=== PATIENT | male | born 1960 | race Hispanic/Latino ===

== ENCOUNTER 2021-05-15 17:51 | Emergency (ER) | payer SELFPAY ==
[2021-05-15 18:10] VITALS: BP 138/87; PULSE 61; RESP 16; TEMP 36.7; O2SAT 99
--- NOTE | 2021-05-15 19:42 | ED.ABDPAIN ---
HPI - Abdominal Pain General Chief Complaint: Abdominal Pain Stated Complaint: Side Pain Source: patient and RN notes reviewed Limitations: no limitations History of Present Illness HPI narrative: The patient, previously mostly healthy and on no medications, presents with left-sided abdominal pain. Patient states he is short of 2-day history of left lower quadrant pain that is mild, worse with deep palpation. No fever, vomiting/diarrhea, frequency/urgency/dysuria/hematuria, radiating pain. He was seen at another facility yesterday but eloped before treatment complete. Labs, testing unavailable; patient declines further hospital referral/testing. Related Data Allergies Allergy/AdvReac Type Severity Reaction Status Date / Time No Known Allergies Allergy Unverified 05/15/21 18:30 Review of Systems Review of Systems: General/Constitutional: No weight loss,fever Respiratory: Denies: Hemoptysis Gastrointestinal: No Vomiting, Bleeding-rectal Skin: No Lumps, eruption Neurologic: No Focal Weakness,Sz Hematologic: Denies: Petechiae/Purpura PMFSH Comments At time of signature, agree with nursing past medical, surgical, social and family history. There is no relevant family history pertinent to the presenting complaint Exam Narrative: General Appearance: Well appearing, No distress Mouth/Throat: Normal appearing, Normal lips,: Supple Respiratory: Airway patent, No respiratory distress Cardiovascular: RRR Abdomen: Soft, only mild LLQ tenderness, No massess, No organomegaly (no rebound/ surgical signs), Hyperactive bowel sounds Musculoskeletal: Full ROM Skin: Warm, Dry Neurological: A&O x3, CN II-X intact Psychiatric: Normal mood, Normal affect Course Vital Signs Vital signs: Vital Signs Temperature 98.0 F 05/15/21 18:10 Pulse Rate 61 05/15/21 18:10 Respiratory Rate 16 05/15/21 18:10 Blood Pressure 138/87 05/15/21 18:10 Pulse Oximetry 99 05/15/21 18:10 Temperature 98.0 F 05/15/21 18:10 Pulse Rate 61 05/15/21 18:10 Respiratory Rate 16 05/15/21 18:10 Blood Pressure 138/87 05/15/21 18:10 Pulse Oximetry 99 05/15/21 18:10 Discharge Plan Discharge Clinical Impression: Abdominal pain, LLQ Patient Disposition: Home, Self-Care Condition: Stable Instructions: Diverticulitis (ED) Additional Instructions: See your doctor without fail as you have declined hospital referral or scan tonight Prescriptions: New amoxicillin-pot clavulanate [Augmentin] 500-125 mg tablet 1 tablet PO TID Qty: 20 RF: 0 tramadol 50 mg tablet 50 - 75 mg PO Q6H PRN (Reason: pain) Qty: 30 RF: 0 Follow-up/Referrals: Abebe,Ritesh Justin MD [Primary Care Provider] - Stand Alone Forms: Work/School Release IP
== END 2021-05-15 19:50 | disposition home or self-care (01) ==
PROVIDERS: Emergency Provider Emergency Medicine; PCP Internal Medicine
DX: R10.32 Left lower quadrant pain (principal)
CPT/HCPCS: 99213; G0463

== ENCOUNTER 2021-05-16 10:28 | Emergency (ER) | payer BC, SELFPAY ==
--- NOTE | ~2021-05-16 | CT_ITS ---
EXAMINATION: CT abdomen pelvis w con EXAM DATE: 05/16/2021 12:28 INDICATION: Left upper quadrant, flank pain. TECHNIQUE: Spiral CT of the abdomen and pelvis was performed following intravenous injection of 100 m L Omnipaque 350. Axial, coronal and sagittal images of the abdomen and pelvis were reviewed. The do se-length product (DLP) for this examination was 461.13 mGy-cm. The exposure was tailored according to patient size (auto mA exposure control), and iterative reconstruction (ASIR) was used as additiona l dose reduction technique. There is no prior study for comparison. FINDINGS: There is a bifid left renal pelvis, with a 3 mm stone which could be partially obstructing the upper moiety which has mild to moderate hydronephrosis. However there is also mild hydronephrosis of the lower moiety, and also enhancement of the renal pelvis and proximal ureter urothelium which c ould be reactive inflammation, or upper urinary tract infection, correlate with urinalysis. The liver, spleen, adrenal glands and pancreas are unremarkable. The gallbladder is distended but ot herwise unremarkable. There is no biliary duct dilation. The prostate is unremarkable. The bladder is unremarkable. There is no retroperitoneal or pelvic lymphadenopathy. Small umbilical and bilat eral inguinal fat-containing hernias. The appendix is normal. The stomach and small bowel are unremarkable. There is expected amount of c olonic stool. No free intraperitoneal gas. The heart is normal in size. There are no pericardial or pleural effusions. The lung bases are unremarkable. There are no osteoblastic or osteolytic les ions identified. IMPRESSION: Bifid left renal pelvis, with a 3 mm stone which could be partially obstructing the upper moiety given mild to moderate hydronephrosis. However there is also mild hydronephrosis of the left lower moiety, and enhancement of the urothelium which could be reactive inflammation, or upper urinar y tract infection, correlate with urinalysis. Reviewed, dictated and finalized at location A. IMPRESSION: Bifid left renal pelvis, with a 3 mm stone which could be partially obstructing the upper moiety given mild to moderate hydronephrosis. However th ere is also mild hydronephrosis of the left lower moiety, and enhancement of th e urothelium which could be reactive inflammation, or upper urinary tract infec tion, correlate with urinalysis.
--- NOTE | ~2021-05-16 | XR_ITS ---
EXAMINATION: XR abdomen/kub 1V EXAM DATE: 05/16/2021 15:04 INDICATION: Kidney stone, flank pain. TECHNIQUE: Frontal projection(s) of the abdomen for interpretation. Correlation is made to CT perform ed earlier same date. FINDINGS: There is bifid left renal collecting system with mild to moderate upper moiety caliectasis . Can't identify the small stone which could be partly obstructing this upper moiety, which may be d ue to the contrast present in the collecting system. Moderate amount of colonic stool and gas. The bl adder is unremarkable. IMPRESSION: Left renal bifid pelvis with mild to moderate upper moiety caliectasis. Reviewed, dictated and finalized at location A. IMPRESSION: Left renal bifid pelvis with mild to moderate upper moiety caliect asis.
[2021-05-16 11:23] VITALS: BP 153/93; PULSE 57; RESP 18; TEMP 37.1; O2SAT 97
[2021-05-16 11:48] LABS: Basophils Percent Auto 0.4 % (0.2-1.2); Eosinophils Absolute Auto 0.1 K/mm3 (0-0.3); Eosinophils Percent Auto 0.7 % (0-4.4); Hematocrit 43.6 % (42.0-52.0); Hemoglobin 14.6 g/dL (14.0-18.0); Immature Granulocyte Absolute 0.03 K/mm3 (0.00-0.031); Immature Granulocyte Percent A 0.4 % (0-0.5); Lymphocytes Absolute Auto 1.63 K/mm3 (0.9-3.2); Lymphocytes Percent Auto 21.5 % (18.3-44.2); Mean Corpuscular HGB Conc 33.5 g/dl (32-36); Mean Corpuscular Hemoglobin 30.9 pg (26-34); Mean Corpuscular Volume 92.2 fl (80-100); Mean Platelet Volume 9.1 fl (7.4-10.4); Monocytes Absolute Auto 0.7 K/mm3 (0.1-0.6); Monocytes Percent Auto 8.6 % (2.6-8.5); Neutrophils Absolute Auto 5.2 K/mm3 (1.3-6.7); Neutrophils Percent Auto 68.4 % (45.5-73.1); Platelet Count Result 240 k/mm3 (150-375); Red Blood Count 4.73 M/mm3 (4.6-6.20); Red Cell Distribution Width 14.3 % (11.5-14.5); White Blood Count 7.6 K/mm3 (4.5-10.0)
[2021-05-16 11:57] LABS: Add Urine Microscopic? YES; Appearance Urine Clear (Clear); Bilirubin Urine Negative (Negative); Blood Urine 2+ (Negative); Color Urine Yellow (Yellow); Glucose Urine UA Negative (Negative); Ketones Urine Negative (Negative); Leukocyte Esterase Ur Negative LEU/UL (Negative); Mucus Urine Rare /lpf; Nitrate Urine Negative (Negative); Protein Urine 1+ mg/dL (Negative); Specific Grav Ur 1.024 (1.001-1.035); Urobilinogen Urine Negative mg/dL (<2.0)
[2021-05-16 12:00] LABS: Alanine Aminotransferase 18 U/L (4-50); Albumin Level 4.4 g/dL (3.5-5.1); Alkaline Phosphatase 58 U/L (38-126); Anion Gap 10 mmol/L (8-16); Aspartate Amino Transferase 24 U/L (17-59); Bilirubin,Total 0.7 mg/dL (0.2-1.3); Blood Urea Nitrogen 18 mg/dL (9-20); Calcium 9.1 mg/dL (8.4-10.2); Carbon Dioxide 24 mmol/L (22-30); Chloride 105 mmol/L (98-107); Estimated CRCL calculation 73 ml/min; Estimated Glomerular Filt Rate > 60; Glucose 101 mg/dL (65-110); Lipase 39 U/L (23-300); Sodium 139 mmol/L (137-145)
--- NOTE | 2021-05-16 12:48 | ED.GENADULT ---
HPI - General Adult General Chief complaint: Abdominal Pain Stated complaint: L Side Pain Time Seen by Provider: 05/16/21 11:13 Source: patient History of Present Illness HPI narrative: Patient is a 60 y/o male complaining of left lower abdominal pain starting 2 days ago. He describes his pain as sharp and rates it as 10/10. His pain goes to the back sometimes. He took OTC pain meds which did not help much. He has no vomiting, diarrhea or dysuria. He was seen at urgent care and diagnosed with possible diverticulitis based clinical features and prescribed Augmentin. However, he states that antibiotic has not help with his symptoms. Related Data Allergies Allergy/AdvReac Type Severity Reaction Status Date / Time No Known Allergies Allergy Verified 05/16/21 11:29 Review of Systems Constitutional: Constitutional: Denies chills, Denies fever(s), Denies headache(s) and Denies weakness Eyes: Eyes: Denies blurry vision ENT: Denies headache(s) and Denies neck pain Cardiovascular: Cardiovascular: Denies chest pain and Denies dyspnea Respiratory: Respiratory: Denies cough and Denies dyspnea Gastrointestinal: Gastrointestinal: Reports abdominal pain, Denies diarrhea, Denies nausea and Denies vomiting Genitourinary: Genitourinary: Denies hematuria and Denies dysuria Musculoskeletal: Musculoskeletal: Denies back pain and Denies neck pain Neurologic: Denies headache(s) and Denies weakness Exam Const: General: no acute distress and well developed Orientation/consciousness: oriented to person, oriented to place, oriented to time and patient oriented x3 HENMT: Head: normocephalic Ears: external ears normal General nose exam: Normal external nose present Eyes: General: appearance normal, both eyes and all related structures Conjunctivae: conjunctivae normal Neck: Neck: normal visual inspection and full ROM Chest: Chest palpation & inspection: normal inspection of the chest and no tenderness Resp: Effort & Inspection: normal respiratory effort Auscultation: clear to auscultation bilaterally Cardio: Rate: bradycardic Rhythm: regular rhythm GI: GI Palp: No abdominal tenderness and Yes Soft to palpation Skin: General skin exam: normal color and turgor normal Neuro: General: oriented to person, oriented to place, oriented to time and patient oriented x3 Cognition (Neuro): normal cognition Extrem: General: normal to inspection, full ROM and no pedal edema Psych: Appearance: grossly normal Mental Status: mental status grossly normal Affect: normal affect Course Consultations Consultation #1: Discussed with Dr. Gonzalez, who recommends KUB, Flomax and patient can follow up with him. Date: 05/16/21 Time: 14:53 Vital Signs Vital signs: Vital Signs Temperature 37.1 C 05/16/21 11:23 Pulse Rate 57 L 05/16/21 11:23 Respiratory Rate 18 05/16/21 11:23 Blood Pressure 153/93 H 05/16/21 11:23 Pulse Oximetry 97 05/16/21 11:23 Temperature 37.1 C 05/16/21 11:23 Pulse Rate 49 L 05/16/21 15:14 Respiratory Rate 18 05/16/21 15:14 Blood Pressure 139/93 H 05/16/21 15:14 Pulse Oximetry 98 05/16/21 15:14 Medical Decision Making Vital Signs Vital Signs: Vital Signs Temperature 37.1 C 05/16/21 11:23 Pulse Rate 57 L 05/16/21 11:23 Respiratory Rate 18 05/16/21 11:23 Blood Pressure 153/93 H 05/16/21 11:23 Pulse Oximetry 97 05/16/21 11:23 Temperature 37.1 C 05/16/21 11:23 Pulse Rate 49 L 05/16/21 15:14 Respiratory Rate 18 05/16/21 15:14 Blood Pressure 139/93 H 05/16/21 15:14 Pulse Oximetry 98 05/16/21 15:14 Lab Data Result diagrams: 05/16/21 11:38 05/16/21 11:38 Labs: Lab Results 05/16/21 05/16/21 05/16/21 Range/Units 11:38 11:38 11:38 WBC 7.6 (4.5-10.0) K/mm3 RBC 4.73 (4.6-6.20) M/mm3 Hgb 14.6 (14.0-18.0) g/dL Hct 43.6 (42.0-52.0) % MCV 92.2 (80-100) fl MCH 30.9 (26-34) pg MCHC 33.5 (32-36)
[2021-05-16 12:53] VITALS: BP 139/96; PULSE 57; RESP 16; O2SAT 99
[2021-05-16] MEDS: SODIUM CHLORIDE 0.9% IV 1,000 ML 999 ML IV CONT (12:53)
[2021-05-16] MEDS: KETOROLAC 30 MG/ML VIAL (*BKC) IV PUSH (12:53)
[2021-05-16 15:14] VITALS: BP 139/93; PULSE 49; RESP 18; O2SAT 98
== END 2021-05-16 15:15 | disposition home or self-care (01) ==
PROVIDERS: Emergency Provider Emergency Medicine; PCP Internal Medicine
DX: N13.2 Hydronephrosis with renal and ureteral calculous obstruction (principal)
CPT/HCPCS: 36415; 74018; 74177; 80053; 81001; 83690; 85025; 87086; 96361; 96374; 99284; J1885; J7030; Q9967

== ENCOUNTER 2021-05-17 03:13 | Emergency (ER) | payer BC, SELFPAY ==
--- NOTE | ~2021-05-17 | XR_ITS ---
EXAMINATION: CT abdomen pelvis wo con, XR abdomen/kub 1V DATE: 05/17/2021 05:16 INDICATION: Left flank pain. TECHNIQUE: 1. Computed tomography (CT) of the abdomen and pelvis was performed without intravenous contrast. Aut omated exposure control and iterative reconstruction technique were employed. The dose-length product was 229.15 mGy-cm. 2. AP view of the abdomen and pelvis were obtained on 2 overlapping radiographs. COMPARISON: 04/18/2007 FINDINGS: CT: Mild dependent atelectasis at the bilateral lung bases. Heart size is normal. No pericardial or pleur al effusion. Dependently layering sludge versus vicariously excreted contrast in the otherwise normal gallbladder. 1.7 cm low-attenuation cysts in the right hepatic lobe. Spleen, pancreas and bilateral adrenal glands are normal. Parapelvic cysts at the left renal hilum. There is a small amount of excre hector contrast in the bilateral renal collecting systems, mildly dilated left ureter and in the bladder . 7 mm stone in an upper pole calyx of the left kidney. 2-3 mm stone in the distal left ureter with m ild left hydroureteronephrosis. No right-sided urolithiasis or hydronephrosis. Prostatomegaly. A coup le diverticula at the ascending and transverse colon without adjacent inflammatory change to suggest diverticulitis. Small bowel and appendix are normal. No free intraperitoneal gas or fluid. No patholo gically enlarged abdominal or pelvic lymphadenopathy. Small bilateral fat-containing inguinal hernias . Bones are unremarkable. KUB: The larger stone at the upper pole of the left kidney is unable to be definitively distinguished from the superimposed colonic stool. Several round calcifications in the pelvis, the majority representin g phleboliths. What is likely the distal left ureteral stone projects slightly lateral to the left si de of the distal sacrum slightly cephalad to a couple of the phleboliths and this has been marked on the radiographs with an arrow. IMPRESSION: 1. 7 mm left renal stone as well as an obstructing 2-3 mm distal left ureteral stone resulting in mil d left hydroureteronephrosis. 2. Reviewed, dictated and finalized at location A. IMPRESSION: 1. 7 mm left renal stone as well as an obstructing 2-3 mm distal left ureteral stone resulting in mild left hydroureteronephrosis. 2.
[2021-05-17 03:15] VITALS: BP 145/75; PULSE 65; RESP 18; TEMP 36.2; O2SAT 97
[2021-05-17 04:02] LABS: Basophils Percent Auto 0.4 % (0.2-1.2); Eosinophils Absolute Auto 0.1 K/mm3 (0-0.3); Hematocrit 42.3 % (42.0-52.0); Hemoglobin 13.9 g/dL (14.0-18.0); Immature Granulocyte Absolute 0.03 K/mm3 (0.00-0.031); Immature Granulocyte Percent A 0.4 % (0-0.5); Lymphocytes Absolute Auto 1.48 K/mm3 (0.9-3.2); Lymphocytes Percent Auto 21.6 % (18.3-44.2); Mean Corpuscular HGB Conc 32.9 g/dl (32-36); Mean Corpuscular Volume 94.2 fl (80-100); Mean Platelet Volume 9.1 fl (7.4-10.4); Monocytes Absolute Auto 0.5 K/mm3 (0.1-0.6); Monocytes Percent Auto 7.2 % (2.6-8.5); Neutrophils Absolute Auto 4.8 K/mm3 (1.3-6.7); Neutrophils Percent Auto 69.4 % (45.5-73.1); Platelet Count Result 221 k/mm3 (150-375); Red Blood Count 4.49 M/mm3 (4.6-6.20); Red Cell Distribution Width 14.1 % (11.5-14.5); White Blood Count 6.9 K/mm3 (4.5-10.0)
[2021-05-17 04:13] LABS: Alanine Aminotransferase 16 U/L (4-50); Albumin Level 3.9 g/dL (3.5-5.1); Alkaline Phosphatase 54 U/L (38-126); Anion Gap 9 mmol/L (8-16); Aspartate Amino Transferase 22 U/L (17-59); Bilirubin,Total 0.4 mg/dL (0.2-1.3); Blood Urea Nitrogen 21 mg/dL (9-20); Calcium 8.3 mg/dL (8.4-10.2); Carbon Dioxide 25 mmol/L (22-30); Chloride 104 mmol/L (98-107); Estimated CRCL calculation 67 ml/min; Estimated Glomerular Filt Rate > 60; Glucose 124 mg/dL (65-110); Lipase 44 U/L (23-300); Potassium 3.6 mmol/L (3.4-5.0); Sodium 138 mmol/L (137-145)
[2021-05-17 04:14] LABS: Add Urine Microscopic? YES; Appearance Urine Cloudy (Clear); Bilirubin Urine Negative (Negative); Blood Urine 3+ (Negative); Color Urine Yellow (Yellow); Glucose Urine UA Negative (Negative); Ketones Urine Trace mg/dL (Negative); Leukocyte Esterase Ur Negative LEU/UL (Negative); Mucus Urine Heavy /lpf; Nitrate Urine Negative (Negative); Protein Urine 2+ mg/dL (Negative); RBC Urine >75 /hpf (0-2); Squamous Epithelial Cell Urine Occasional /hpf (Few); WBC Urine 21-30 /hpf
[2021-05-17 04:15] LABS: Specific Grav Ur 1.035 (1.001-1.035)
--- NOTE | 2021-05-17 05:07 | ED.ABDPAIN ---
HPI - Abdominal Pain General Chief Complaint: Abdominal Pain Stated Complaint: left flank pain Time Seen by Provider: 05/17/21 04:47 Source: patient and RN notes reviewed Mode of arrival: ambulatory Limitations: no limitations History of Present Illness HPI narrative: This is a 60 year old male who presents for evaluation of left flank pain. He developed pain 2 days ago and he states his pain has been constant. He was evaluated at [facility] on 05/15/21 and he was prescribed antibiotics and tramadol. His pain has continued to worsen so he came to ER. He took his prescribed pain medication at 2 am and he did not receive any relief. He denies nausea, vomiting, fever, chills, dysuria. He rates pain currently 7/10. Related Data Allergies Allergy/AdvReac Type Severity Reaction Status Date / Time No Known Allergies Allergy Unverified 05/15/21 18:30 Review of Systems Review of Systems: All systems reviewed & are unremarkable except as noted in HPI and below PMFSH Past Medical History Medical History (Updated 05/17/21 @ 07:14 by Lupe Levy MD) Hyperlipidemia Surgical History Surgical History (Updated 05/17/21 @ 05:09 by Lupe Levy MD) No pertinent past surgical history Social History Social History (Updated 05/17/21 @ 05:09 by Lupe Levy MD) Smoking status: Never smoker Exam Const: General: no acute distress and alert Orientation/consciousness: patient oriented x3 Eyes: EOM: EOMs intact bilaterally Chest: Chest palpation & inspection: normal inspection of the chest Resp: Effort & Inspection: normal respiratory effort and no retractions Auscultation: clear to auscultation bilaterally Cardio: Rate: regular rate Rhythm: regular rhythm Heart sounds: no murmurs GI: GI Palp: Yes Soft to palpation, No Guarding due to palpation present (GI) and No Rigid due to palpation : General: Yes CVA tenderness on the left Skin: General skin exam: normal color Rashes: no rashes Neuro: General: patient oriented x3, moves all extremities and CN's II-XI intact bilaterally Course Reevaluation(s) Reevaluation #1: Patient found to have left distal ureteral stone. His pain has now resolved. I Discussed he will need to follow up regarding his larger stone in his kidney. Date: 09/29/21 Time: 07:11 Vital Signs Vital signs: Vital Signs Temperature 97.1 F L 05/17/21 03:15 Pulse Rate 65 05/17/21 03:15 Respiratory Rate 18 05/17/21 03:15 Blood Pressure 145/75 H 05/17/21 03:15 Pulse Oximetry 97 05/17/21 03:15 Temperature 97.1 F L 05/17/21 03:15 Pulse Rate 53 L 05/17/21 06:49 Respiratory Rate 18 05/17/21 06:49 Blood Pressure 114/71 05/17/21 06:49 Pulse Oximetry 97 05/17/21 06:49 MDM - Abdominal Pain Lab Data Attestation: I reviewed the patient's lab results. Result diagrams: 05/17/21 03:54 05/17/21 03:54 Labs: Lab Results 05/17/21 05/17/21 05/17/21 Range/Units 03:52 03:54 03:54 WBC 6.9 (4.5-10.0) K/mm3 RBC 4.49 L (4.6-6.20) M/mm3 Hgb 13.9 L (14.0-18.0) g/dL Hct 42.3 (42.0-52.0) % MCV 94.2 (80-100) fl MCH 31.0 (26-34) pg MCHC 32.9 (32-36) g/dl RDW 14.1 (11.5-14.5) % Plt Count 221 (150-375) k/mm3 MPV 9.1 (7.4-10.4) fl Immature Gran % (Auto) 0.4 (0-0.5) % Neut % (Auto) 69.4 (45.5-73.1) % Lymph % (Auto) 21.6 (18.3-44.2) % [place] % (Auto) 7.2 (2.6-8.5) % Eos % (Auto) 1.0 (0-4.4) % Baso % (Auto) 0.4 (0.2-1.2) % Lymph # (Auto) 1.48 (0.9-3.2) K/mm3 [place] # (Auto) 0.5 (0.1-0.6) K/mm3 Eos # (Auto) 0.1 (0-0.3) K/mm3 Baso # (Auto) 0.0 (0.0-0.1) K/mm3 Abs Immat Gran (auto) 0.03 (0.00-0.031) K/mm3 Absolute Neuts (auto) 4.8 (1.3-6.7) K/mm3 Absolute Nucleated RBC 0.0 (0.0-0.012) K/mm3 Nucleated RBC % 0.0 (0.0-0.2) % Sodium 138 (137-145) mmol/L Potassium 3.6 (3.4-5.0) mmol/L Chloride 104 (98-1
[2021-05-17] MEDS: ONDANSETRON INJ 4 MG/2 ML VIAL IV PUSH (05:25)
[2021-05-17] MEDS: SODIUM CHLORIDE 0.9% IV 1,000 ML 999 ML IV CONT (05:25)
[2021-05-17] MEDS: MORPHINE SULFATE (*CRX) 4 MG/ML INJ IV PUSH (05:26)
[2021-05-17 05:34] VITALS: BP 138/87; PULSE 56; RESP 18; O2SAT 93
[2021-05-17] MEDS: TAMSULOSIN HCL 0.4 MG CAPSULE PO (06:14)
[2021-05-17] MEDS: KETOROLAC 30 MG/ML VIAL (*BKC) IV PUSH (06:15)
[2021-05-17 06:16] VITALS: BP 131/77; PULSE 57; RESP 18; O2SAT 97
[2021-05-17 06:49] VITALS: BP 114/71; PULSE 53; RESP 18; O2SAT 97
[2021-05-17 07:48] VITALS: BP 119/71; PULSE 56; RESP 18; O2SAT 98
== END 2021-05-17 07:50 | disposition home or self-care (01) ==
PROVIDERS: Emergency Provider General Practice; PCP Internal Medicine
DX: N13.2 Hydronephrosis with renal and ureteral calculous obstruction (principal); E78.5 Hyperlipidemia, unspecified
CPT/HCPCS: 36415; 74018; 74176; 80053; 81001; 83690; 85025; 87086; 96361; 96374; 96375; 99284; A9270; J1885; J2270; J2405; J7030

== ENCOUNTER 2021-05-20 21:41 | Observation (INO) | payer BC, SELFPAY ==
--- NOTE | ~2021-05-20 | XR_ITS ---
XR fluoroscopy no charge 05/21/2021 09:10 Indication: Left ureteral stone extraction Procedure: 2 fluoroscopic images of the abdomen. 6.5 seconds of fluoroscopy. Comparison: CT dated 05/21/2021 Findings: There is a guidewire in the left abdomen on image 5. Ureteral stones are not identified, al though resolution is limited. Please refer to procedural report for details. Impression: 1: Fluoroscopic guidance for left ureteral stone extraction. Reviewed, dictated and finalized at location A. Impression: 1: Fluoroscopic guidance for left ureteral stone extraction.
--- NOTE | ~2021-05-20 | CT_ITS ---
EXAMINATION: CT abdomen pelvis wo con DATE: 05/21/2021 03:13 INDICATION: Left flank pain. History of kidney stone. TECHNIQUE: Computed tomography (CT) of the abdomen and pelvis was performed without intravenous contr ast. The dose-length product was 220.19 mGy-cm. Automated exposure control and iterative reconstructi on technique were employed. COMPARISON: CT dated 05/16/2021. FINDINGS: Heart size is normal. No significant pleural or pericardial effusion. No significant athero sclerotic change. There has been inferior migration of 3 mm stone into the distal aspect of the urete r, near the expected location of the ureteral vesicle junction. Mild left hydronephrosis with perinep hric edema. Nonobstructive bowel gas pattern. Low-density lesion right hepatic lobe, most likely benign cyst or h emangioma. The spleen, pancreas, adrenal glands and right kidney are unremarkable. Bladder is unremar kable. Prostate gland mildly prominent. No acute osseous abnormality. IMPRESSION: 1. Inferior migration of 3 mm left ureteral stone now residing in the pelvis near the ureterovesical junction. Mild left hydronephrosis and perinephric edema. Reviewed, dictated and finalized at location A. IMPRESSION: 1. Inferior migration of 3 mm left ureteral stone now residing in the pelvis ne ar the ureterovesical junction. Mild left hydronephrosis and perinephric edema.
[2021-05-20 22:06] VITALS: BP 181/97; PULSE 69; RESP 15; TEMP 36.5; O2SAT 96
[2021-05-20 22:27] LABS: Basophils Percent Auto 0.4 % (0.2-1.2); Eosinophils Absolute Auto 0.1 K/mm3 (0-0.3); Eosinophils Percent Auto 1.1 % (0-4.4); Hematocrit 41.6 % (42.0-52.0); Immature Granulocyte Absolute 0.05 K/mm3 (0.00-0.031); Immature Granulocyte Percent A 0.7 % (0-0.5); Lymphocytes Absolute Auto 1.91 K/mm3 (0.9-3.2); Lymphocytes Percent Auto 27.2 % (18.3-44.2); Mean Corpuscular HGB Conc 33.7 g/dl (32-36); Mean Corpuscular Volume 92.2 fl (80-100); Mean Platelet Volume 8.9 fl (7.4-10.4); Monocytes Absolute Auto 0.5 K/mm3 (0.1-0.6); Monocytes Percent Auto 7.7 % (2.6-8.5); Neutrophils Absolute Auto 4.4 K/mm3 (1.3-6.7); Neutrophils Percent Auto 62.9 % (45.5-73.1); Platelet Count Result 255 k/mm3 (150-375); Red Blood Count 4.51 M/mm3 (4.6-6.20); Red Cell Distribution Width 13.6 % (11.5-14.5)
[2021-05-20 22:31] LABS: Add Urine Microscopic? YES; Appearance Urine Clear (Clear); Bilirubin Urine Negative (Negative); Blood Urine 2+ (Negative); Color Urine Yellow (Yellow); Glucose Urine UA Negative (Negative); Ketones Urine Negative (Negative); Leukocyte Esterase Ur Negative LEU/UL (Negative); Mucus Urine Few /lpf; Nitrate Urine Negative (Negative); Protein Urine Negative (Negative); Specific Grav Ur 1.024 (1.001-1.035); Squamous Epithelial Cell Urine Rare /hpf (Few)
[2021-05-20 22:43] LABS: Anion Gap 10 mmol/L (8-16); Blood Urea Nitrogen 19 mg/dL (9-20); Calcium 9.1 mg/dL (8.4-10.2); Carbon Dioxide 26 mmol/L (22-30); Chloride 101 mmol/L (98-107); Estimated CRCL calculation 67 ml/min; Estimated Glomerular Filt Rate > 60; Glucose 111 mg/dL (65-110); Potassium 3.8 mmol/L (3.4-5.0); Sodium 137 mmol/L (137-145)
[2021-05-21] VITALS (14 sets, daily range): BP systolic 103–177; BP diastolic 71–91; PULSE 42–88; RESP 12–18; TEMP 36.3–36.6; O2SAT 96–100; BMI 27.8
--- NOTE | 2021-05-21 05:31 | ED.GENADULT ---
HPI - General Adult General Chief complaint: Abdominal Pain Stated complaint: Left flank pain History of Present Illness HPI narrative: Patient is a 60-year-old male who presents ER with flank pain. Seen on 05/16 and diagnosed with a UPJ stone that is 3 mm in size. He has follow-up scheduled in 2 days from now. Reports has been taking his home medication but pain is referring down into his lower abdomen is becoming uncontrollable. No fevers or chills or sweats. No hematuria or dysuria. He has tried Yarnell without relief. Related Data Allergies Allergy/AdvReac Type Severity Reaction Status Date / Time No Known Allergies Allergy Verified 05/20/21 22:12 Review of Systems Review of Systems: All systems reviewed & are unremarkable except as noted in HPI and below Constitutional: Constitutional: Denies chills, Denies fever(s) and Denies weakness Gastrointestinal: Gastrointestinal: Reports abdominal pain, Denies diarrhea, Reports nausea and Denies vomiting Genitourinary: Genitourinary: Denies hematuria, Denies dysuria, Reports testicular pain and Reports urinary frequency PMFSH Past Medical History Medical History (Updated 05/21/21 @ 06:12 by Toy Ascencio MD) Kidney stones Surgical History Surgical History (Updated 05/21/21 @ 06:13 by Toy Ascencio MD) No pertinent past surgical history Exam Narrative: GENERAL: Well-appearing, well-nourished, and in no acute distress. HEAD: Normocephalic, atraumatic. ENT: Mucous membranes moist. CHEST: Clear to auscultation. No respiratory distress. HEART: Regular rate and rhythm. Normal peripheral pulses. ABDOMEN: Soft, nontender, nondistended. EXTREMITIES: Normal range of motion. No edema. NEURO: Alert and oriented x3. PSYCH: Normal mood and affect. Course Course Emergency Course: Discussed with urology. They would like to admit primarily and will take patient to the OR for stone extraction. Vital Signs Vital signs: Vital Signs Temperature 97.7 F 05/20/21 22:06 Pulse Rate 69 05/20/21 22:06 Respiratory Rate 15 05/20/21 22:06 Blood Pressure 181/97 H 05/20/21 22:06 Pulse Oximetry 96 05/20/21 22:06 Temperature 97.7 F 05/20/21 22:06 Pulse Rate 66 05/21/21 05:28 Respiratory Rate 14 05/21/21 05:28 Blood Pressure 118/71 05/21/21 05:28 Pulse Oximetry 98 05/21/21 05:28 Medical Decision Making Vital Signs Vital Signs: Vital Signs Temperature 97.7 F 05/20/21 22:06 Pulse Rate 69 05/20/21 22:06 Respiratory Rate 15 05/20/21 22:06 Blood Pressure 181/97 H 05/20/21 22:06 Pulse Oximetry 96 05/20/21 22:06 Temperature 97.7 F 05/20/21 22:06 Pulse Rate 66 05/21/21 05:28 Respiratory Rate 14 05/21/21 05:28 Blood Pressure 118/71 05/21/21 05:28 Pulse Oximetry 98 05/21/21 05:28 Lab Data Result diagrams: 05/20/21 22:12 05/20/21 22:12 Labs: Lab Results 05/20/21 05/20/21 05/20/21 Range/Units 22:12 22:12 22:18 WBC 7.0 (4.5-10.0) K/mm3 RBC 4.51 L (4.6-6.20) M/mm3 Hgb 14.0 (14.0-18.0) g/dL Hct 41.6 L (42.0-52.0) % MCV 92.2 (80-100) fl MCH 31.0 (26-34) pg MCHC 33.7 (32-36) g/dl RDW 13.6 (11.5-14.5) % Plt Count 255 (150-375) k/mm3 MPV 8.9 (7.4-10.4) fl Immature Gran % (Auto) 0.7 H (0-0.5) % Neut % (Auto) 62.9 (45.5-73.1) % Lymph % (Auto) 27.2 (18.3-44.2) % [place] % (Auto) 7.7 (2.6-8.5) % Eos % (Auto) 1.1 (0-4.4) % Baso % (Auto) 0.4 (0.2-1.2) % Lymph # (Auto) 1.91 (0.9-3.2) K/mm3 [place] # (Auto) 0.5 (0.1-0.6) K/mm3 Eos # (Auto) 0.1 (0-0.3) K/mm3 Baso # (Auto) 0.0 (0.0-0.1) K/mm3 Abs Immat Gran (auto) 0.05 H (0.00-0.031) K/mm3 Absolute Neuts (auto) 4.4 (1.3-6.7) K/mm3 Absolute Nucleated RBC 0.0 (0.0-0.012) K/mm3 Nucleated RBC % 0.0 (0.0-0.2) % Sodium 137 (137-145) mmol/L Potassium 3.8 (3.4-5.0) mmol/L Chloride 101 (98-107) mmol/L [place]
--- NOTE | 2021-05-21 07:39 | ADMGEN ---
This patient, Ifeanyi Parra, was admitted to 2 Medical Room 261-01. Patient oriented to hospital policies and general routines including ID bracelet, bed and alarms, visiting hours, pain management, procedures, bathroom and other care routines, personal items, smoking policy, room service/diet, and visiting hours. Information on how to activate the Rapid Response Team has been discussed. Patient are encouraged to report perceived risks to care and to ask questions if they do not understand what they are told or what they should do.
[2021-05-21] MEDS: LACTATED RINGERS 1,000 ML 30 ML IV CONT (08:20)
--- NOTE | 2021-05-21 08:33 | WPDANESEPPF ---
Anes - Initial Pre Proc Eval Procedure: Operation Date: 05/21/21 08:45 Proposed Procedures p Cystoscopy,Left Ureteroscopy,Stone Extraction - Francis Wilcox MD Date/Time: 05/21/21 08:33 Surgeon: Francis Wilcox MD Pre Op Diagnosis: Left uvj stone Patient Data Age: 60 Gender: M Height: 1.7 m Weight: 80.5 kg Last Vital Signs Temp 36.4 C 05/21/21 07:05 Pulse 52 L 05/21/21 07:05 Resp 16 05/21/21 07:05 BP 144/81 H 05/21/21 07:05 Pulse Ox 97 05/21/21 07:05 Allergies Allergy/AdvReac Type Severity Reaction Status Date / Time No Known Allergies Allergy Verified 05/20/21 22:12 Home Medications Medication Instructions Recorded Confirmed Type hydrocodone-acetaminophen 1 tablet PO Q8H PRN #15 tablet 05/16/21 05/21/21 Rx tamsulosin [Flomax] 0.4 mg PO DAILY #10 cap 05/16/21 05/21/21 Rx Laboratory Tests 05/20/21 05/20/21 05/20/21 22:12 22:12 22:18 WBC 7.0 K/mm3 K/mm3 (4.5-10.0) RBC 4.51 M/mm3 L M/mm3 (4.6-6.20) Hgb 14.0 g/dL g/dL (14.0-18.0) Hct 41.6 % L % (42.0-52.0) MCV 92.2 fl fl (80-100) MCH 31.0 pg pg (26-34) MCHC 33.7 g/dl g/dl (32-36) RDW 13.6 % % (11.5-14.5) Plt Count 255 k/mm3 k/mm3 (150-375) MPV 8.9 fl fl (7.4-10.4) Immature Gran % (Auto) 0.7 % H % (0-0.5) Neut % (Auto) 62.9 % % (45.5-73.1) Lymph % (Auto) 27.2 % % (18.3-44.2) [place] % (Auto) 7.7 % % (2.6-8.5) Eos % (Auto) 1.1 % % (0-4.4) Baso % (Auto) 0.4 % % (0.2-1.2) Lymph # (Auto) 1.91 K/mm3 K/mm3 (0.9-3.2) [place] # (Auto) 0.5 K/mm3 K/mm3 (0.1-0.6) Eos # (Auto) 0.1 K/mm3 K/mm3 (0-0.3) Baso # (Auto) 0.0 K/mm3 K/mm3 (0.0-0.1) Abs Immat Gran (auto) 0.05 K/mm3 H K/mm3 (0.00-0.031) Absolute Neuts (auto) 4.4 K/mm3 K/mm3 (1.3-6.7) Absolute Nucleated RBC 0.0 K/mm3 K/mm3 (0.0-0.012) Nucleated RBC % 0.0 % % (0.0-0.2) Sodium 137 mmol/L mmol/L (137-145) Potassium 3.8 mmol/L mmol/L (3.4-5.0) Chloride 101 mmol/L mmol/L (98-107) Carbon Dioxide 26 mmol/L mmol/L (22-30) Anion Gap 10 mmol/L mmol/L (8-16) BUN 19 mg/dL mg/dL (9-20) Creatinine 1.00 mg/dL mg/dL (0.7-1.3) Estim Creat Clear Calc 67 ml/min ml/min Estimated GFR > 60 (59 - ) Glucose 111 mg/dL H mg/dL (65-110) Calcium 9.1 mg/dL mg/dL (8.4-10.2) Urine Color Yellow (Yellow) Urine Appearance Clear (Clear) Urine pH 5.0 (5.0-9.0) Ur Specific [place] 1.024 (1.001-1.035) Urine Protein Negative mg/dL mg/dL (Negative) Urine Glucose (UA) Negative mg/dL mg/dL (Negative) Urine Ketones Negative mg/dL mg/dL (Negative) Ur Blood (Man) 2+ H (Negative) Urine Nitrate Negative (Negative) Urine Bilirubin Negative (Negative) Urine Urobilinogen 2.0 mg/dL H mg/dL (<2.0) Leukocyte Esterase Rfl Negative LENO/UL LENO/UL (Negative) Urine RBC 3-5 /hpf H /hpf (0-2) Urine WBC 4-6 /hpf H /hpf Ur Squamous Epith Cells Rare /hpf /hpf (Few) Urine Mucus Few /lpf H /lpf Patient hx anesthesia problems: none Family hx anesthesia problems: none Results Review: All pre-operative results and documents have been reviewed as part of the pre-operative evaluation. [facility] Past Medical History Medical History (Updated 05/21/21 @ 08:34 by Chaz Lacey MD) Kidney stones Overweight Surgical History Surgical History No pertinent past surgical history Social History Social History Years smoked: 10 Smoking status:
--- NOTE | 2021-05-21 08:36 | PM.IMHP ---
H&P: HPI History of Present Illness Date/Time: 05/21/21 08:36 Pleasant gentleman who has spontaneously passed 1 prior ureteral calculus was been in the ER twice this week with painful obstructing small left ureteral stone. This is progressed from mid to distal ureter but still causing obstruction and significant. Denies fevers chills or gross hematuria. Chief Complaint: Left flank pain Review of Systems Cardiovascular: Cardiovascular: Denies chest pain, Denies lightheadedness, Denies palpitations and Denies dyspnea Respiratory: Respiratory: Denies dyspnea Gastrointestinal: Gastrointestinal: Denies diarrhea, Denies nausea and Denies vomiting Genitourinary: Genitourinary: Denies hematuria and Denies dysuria Endocrine: Endocrine: Denies palpitations PMFSH Past Medical History Medical History Kidney stones Overweight Surgical History Surgical History No pertinent past surgical history Social History Social History Years smoked: 10 Smoking status: Former smoker Tobacco type: cigars Second hand tobacco smoke exposure: No Alcohol intake: never Substance use: never Spiritual care concerns: No Meds Home Medications and Allergies Home Medications Medication Instructions Recorded Confirmed Type hydrocodone-acetaminophen 1 tablet PO Q8H PRN #15 tablet 05/16/21 05/21/21 Rx tamsulosin [Flomax] 0.4 mg PO DAILY #10 cap 05/16/21 05/21/21 Rx Allergies Allergy/AdvReac Type Severity Reaction Status Date / Time No Known Allergies Allergy Verified 05/20/21 22:12 Vital Signs Vital Signs - 24 hr 05/20/21 22:06 05/21/21 00:35 05/21/21 05:28 Temperature 97.7 F Pulse Rate 69 88 66 Respiratory Rate 15 18 14 Blood Pressure 181/97 H 177/91 H 118/71 Pulse Oximetry 96 97 98 05/21/21 07:05 Temperature 97.6 F Pulse Rate 52 L Respiratory Rate 16 Blood Pressure 144/81 H Pulse Oximetry 97 Exam Const: General: no acute distress Resp: Effort & Inspection: normal respiratory effort GI: Inspection: non-distended GI Palp: No abdominal tenderness and No Guarding due to palpation present (GI) Auscultation: normal bowel sounds H&P: Results Labs Labs: Short CBC 05/20/21 Range/Units 22:12 WBC 7.0 (4.5-10.0) K/mm3 Hgb 14.0 (14.0-18.0) g/dL Hct 41.6 L (42.0-52.0) % Plt Count 255 (150-375) k/mm3 BMP 05/20/21 22:12 Sodium 137 Potassium 3.8 Chloride 101 Carbon Dioxide 26 BUN 19 Creatinine 1.00 Glucose 111 H Calcium 9.1 Urine 05/20/21 Range/Units 22:18 Urine Color Yellow (Yellow) Urine Appearance Clear (Clear) Urine pH 5.0 (5.0-9.0) Ur Specific [place] 1.024 (1.001-1.035) Urine Protein Negative (Negative) mg/dL Urine Glucose (UA) Negative (Negative) mg/dL Assessment and Plan Assessment and plan (1) Ureterolithiasis: Code(s): N20.1 - Calculus of ureter Status: Acute Assessment and Plan: Cystoscopy, left ureteroscopy with stone extraction
--- NOTE | 2021-05-21 08:38 | WPDHPUPDATE1 ---
History and Physical Update Update Date/Time: 05/21/21 08:38 History and Physical has been reviewed, including an updated exam of the patient. There are NO changes in the patient's condition. Risks, benefits, and alternatives have been discussed and questions answered. Patient agrees to proceed with procedure.
--- NOTE | 2021-05-21 08:42 | SUR.PREOP ---
PATIENT TO OR.
[2021-05-21] MEDS: ceFAZolin SODIUM 1 GM VIAL 2 GM IV PUSH (08:54)
[2021-05-21] MEDS: LIDOCAINE HCL 2% GEL UROJET 10 ML PKG MUCOUS MEM (08:55)
--- NOTE | 2021-05-21 09:05 | P.OP_ITS ---
Procedure Note - Detailed Date of Procedure 05/21/21 Pre-op Diagnosis Left uvj stone Post-op Diagnosis same Procedure Performed Cystoscopy, left ureteroscopy with stone extraction Surgeon Francis Wilcox MD Anesthesia MAC Description of Procedure The patient was brought to the operative suite where he is prepped and draped in a routine sterile fashion while in the dorsal lithotomy position after the uneventful induction of a general LMA anesthetic. A 19F rigid cystoscope was placed in the bladder. There are no urethral strictures. His prostatic urethra measures, approximately, 1.0cm with no median lobe enlargement. The bladder mucosa was endoscopically normal without hyperemia or neoplasm. There wa s a single, orthotopic ureteral orifice bilaterally. A 0.035 glidewire was advanced into the left renal pelvis under fluoroscopy. The distal ureter was dilated with an 8F/10F ureteral dilator. Ureteroscopy was undertaken with a short, tapered, semi-rigid ureteroscope and the stone was extracted with ease using a 1.9F Escape disposable stone basket. Due to the ease of this manipulation I opted not to place a ureteral stent. The patient's bladder was emptied and was taken to the recovery room having tolerated this procedure well. Estimated Blood Loss 0 Drains No Packing No Pathology yes Complications No immediate complications Condition stable Disposition PACU
--- NOTE | 2021-05-21 09:12 | PM.DS ---
DS: Admitting Diagnosis Discharge Date 05/21/2021 Admitting Diagnosis Right ureteral stone DS: Discharge Diagnosis Discharge Diagnosis (1) Ureterolithiasis: Code(s): N20.1 - Calculus of ureter Status: Acute DS: Summary Hospital Course Hospital Course: This patient had been in the ER twice in the past several days with a painful obstructing left ureteral calculus. On 2nd occasion was admitted in shortly thereafter underwent endoscopic stone extraction without need for stent placement. Demonstrating he could tolerate p.o. intake and pain managed with oral medications he was discharged with plans to follow-up in 2-3 weeks. Time Spent with Patient Time attestation: Total time spent providing and/or coordinating discharge services: 15min Exam Const: General: no acute distress Resp: Effort & Inspection: normal respiratory effort GI: Inspection: non-distended GI Palp: No abdominal tenderness and No Guarding due to palpation present (GI) Auscultation: normal bowel sounds DS: Data Data Completed and Pending Pending studies at discharge: Pending at discharge 05/21/21 09:02 Surgical [PTH] Routine Labs on day of discharge: Labs from last 24 hours 05/20/21 05/20/21 05/20/21 22:18 22:12 22:12 WBC 7.0 RBC 4.51 L Hgb 14.0 Hct 41.6 L MCV 92.2 MCH 31.0 MCHC 33.7 RDW 13.6 Plt Count 255 MPV 8.9 Immature Gran % (Auto) 0.7 H Neut % (Auto) 62.9 Lymph % (Auto) 27.2 [place] % (Auto) 7.7 Eos % (Auto) 1.1 Baso % (Auto) 0.4 Lymph # (Auto) 1.91 [place] # (Auto) 0.5 Eos # (Auto) 0.1 Baso # (Auto) 0.0 Abs Immat Gran (auto) 0.05 H Absolute Neuts (auto) 4.4 Absolute Nucleated RBC 0.0 Nucleated RBC % 0.0 Sodium 137 Potassium 3.8 Chloride 101 Carbon Dioxide 26 Anion Gap 10 BUN 19 Creatinine 1.00 Estim Creat Clear Calc 67 Estimated GFR > 60 Glucose 111 H Calcium 9.1 Urine Color Yellow Urine Appearance Clear Urine pH 5.0 Ur Specific [place] 1.024 Urine Protein Negative Urine Glucose (UA) Negative Urine Ketones Negative Ur Blood (Man) 2+ H Urine Nitrate Negative Urine Bilirubin Negative Urine Urobilinogen 2.0 H Leukocyte Esterase Rfl Negative Urine RBC 3-5 H Urine WBC 4-6 H Ur Squamous Epith Cells Rare Urine Mucus Few H Discharge Plan Discharge Attending physician on discharge: Francis Wilcox Discharging Clinician: Francis Wilcox Patient Disposition: Home, Self-Care Activity: may shower Diet: regular Discharge Instructions: 1) Activity: no driving or important decisions x24 hours. 2) Diet: resume your normal, pre-admission diet. 3) Follow-up: 2-3 weeks / call for appointment ([phone]). Patient Instructions: Antibiotic Form Stand Alone Forms: General Discharge Information Follow-up/Referrals: Francis Wilcox MD [Physician] - Discharge Medications: New hydrocodone-acetaminophen 5-325 mg tablet 1 - 2 tablet PO Q6H PRN (Reason: severe pain (scale score 7-10)) Qty: 20 RF: 0 ketorolac 10 mg tablet 10 mg PO Q6H 5 Days Qty: 20 RF: 0 cephalexin 500 mg capsule 500 mg PO Q8H Qty: 9 RF: 0 Continued hydrocodone-acetaminophen 5-325 mg tablet 1 tablet PO Q8H PRN (Reason: pain) Qty: 15 RF: 0 tamsulosin [Flomax] 0.4 mg capsule 0.4 mg PO DAILY Qty: 10 RF: 0 Date of admission: 05/21/21 05:30 Primary Care Provider: Abebe,Ritesh Justin Admitting Provider: Francis Wilcox Attending physician on admission: Francis Wilcox Condition: Stable
[2021-05-21] MEDS: TAMSULOSIN HCL 0.4 MG CAPSULE PO (11:14)
[2021-05-21] MEDS: HYDROcodone/acetaminophen (*CRX) 5-325 MG TABLET 1 TAB PO (13:55)
== END 2021-05-21 14:00 | disposition home or self-care (01) ==
LOC: ANHED 05-21 05:34 → ANH2MED 05-21 06:35
PROVIDERS: Admitting Provider Urology; Emergency Provider Emergency Medicine; PCP Internal Medicine; Visit Provider Urology
PROC: (CPT 52352; principal; 2021-05-21 08:45)
DX: N13.2 Hydronephrosis with renal and ureteral calculous obstruction (principal); Z87.891 Personal history of nicotine dependence
CPT/HCPCS: 52332; 36415; 74176; 80048; 81001; 82365; 85025; 88300; 96361; 96374; 99285; A9270; C1769; C1894; G0378; J0690; J1885; J2250; J2704; J7120; Q9966

== ENCOUNTER 2021-05-25 11:27 | Outpatient (CLI) | payer BC, SELFPAY ==
--- NOTE | ~2021-05-25 | US_ITS ---
US renal BI DATE: 05/25/2021 12:25 INDICATION: Left ureterovesical junction calculus TECHNIQUE: Real-time imaging of kidneys and urinary bladder COMPARISON: 05/21/[address] abdomen pelvis 05/25/2021 KUB FINDINGS: The right kidney measures 11.4 cm length, left kidney 11.9 cm. No renal mass lesion is dete cted. There is mild to moderate hydronephrosis of the left kidney. No bladder intraluminal mass lesion is evident. IMPRESSION: Mild to moderate left hydronephrosis Reviewed, dictated and finalized at [facility] Reviewed, dictated and finalized at [facility].
--- NOTE | ~2021-05-25 | XR_ITS ---
XR abdomen/kub 1V DATE: 05/25/2021 12:07 INDICATION: Kidney stone TECHNIQUE: AP projection, 2 views COMPARISON: 06/07/[address] abdomen pelvis 05/16/2021 KUB FINDINGS: Approximately 4 mm calcification is noted overlying the approximate position of the left ur eterovesical junction. There is a prominent amount of fecal material within the colon but no evidence of bowel obstruction. The psoas shadows are intact. No visceromegaly is evident. Included skeletal structures are unremarkable. IMPRESSION: Calcified left ureterovesical junction approximately 4 mm calculus Reviewed, dictated and finalized at [facility] Reviewed, dictated and finalized at [facility].
== END 2021-05-25 11:28 | disposition home or self-care (01) ==
PROVIDERS: PCP Internal Medicine; Visit Provider Urology
DX: N20.0 Calculus of kidney (principal); N13.30 Unspecified hydronephrosis; R10.9 Unspecified abdominal pain
CPT/HCPCS: 74018; 76775

== ENCOUNTER 2025-03-26 17:29 | Emergency (ER) | payer OTHER, SELFPAY ==
--- NOTE | 2025-03-26 17:30 | ED.EAR ---
HPI - Ear Problem General Chief complaint: Ear Stated complaint: can't hear out of left ear Time Seen by Provider: 03/26/25 17:42 Source: patient, RN notes reviewed and old records reviewed Mode of arrival: ambulatory Limitations: no limitations History of Present Illness HPI Narrative: 64-year-old male presents to the [facility] with family member. Reports decreased hearing to the left ear. Denies any pain Treatment prior to arrival: none Related Data Allergies Allergy/AdvReac Type Severity Reaction Status Date / Time No Known Allergies Allergy Verified 03/26/25 18:04 Review of Systems Review of Systems: All systems reviewed & are unremarkable except as noted in HPI and below Constitutional: Constitutional: Reports no additional constitutional complaints ENT: Reports as per HPI Cardiovascular: Cardiovascular: Reports no additional cardiovascular complaints, Denies chest pain and Denies dyspnea Respiratory: Respiratory: Reports no additional respiratory complaints, Denies chest congestion, Denies cough and Denies dyspnea Musculoskeletal: Musculoskeletal: Reports no additional musculoskeletal complaints Integumentary/Breasts: Skin/Breast: Reports system reviewed and no additional complaints, except as docu PMFSH Past Medical History Medical History Hyperlipidemia Overweight Kidney stones Surgical History Surgical History No pertinent past surgical history No pertinent past surgical history Social History Social History Years smoked: 10 Smoking status: Never smoker Tobacco type: cigars Second hand tobacco smoke exposure: No Alcohol intake: never Substance use: never Spiritual care concerns: No Comments At the time of my signature, I reviewed and agree with the nursing past medical, surgical, social, and family history. There is no relevant family history pertinent to the patient complaint. Exam Const: General: cooperative, healthy appearing, comfortable, no acute distress, well developed, alert and well nourished Nutritional Appearance: well nourished Orientation/consciousness: patient oriented x3 Limitations: no limitations HENMT: Head: normal to inspection Ears: hearing grossly normal bilaterally, external ears normal, mastoids normal, no periauricular adenopathy and Abnormal EAC present cerumen impaction bilateral Mouth: Yes Normal oral and palatal mucosa present, Yes lip normal, Yes tongue normal and Yes moist mucous membranes Eyes: General: appearance normal, both eyes and all related structures Alignment and Position: alignment normal Neck: Neck: normal visual inspection, full ROM, no lymphadenopathy and no meningeal signs Chest: Chest palpation & inspection: normal inspection of the chest Resp: Effort & Inspection: normal respiratory effort and able to speak in complete sentences Cardio: Rate: regular rate Skin: General skin exam: normal color and no rashes or lesions noted Neuro: General: patient oriented x3, gait normal, moves all extremities and no meningeal signs Cognition (Neuro): normal cognition Speech: normal speech Gait exam (Neuro): Normal gait present Extrem: General: normal to inspection, full ROM, capillary refill normal and normal gait Psych: Appearance: grossly normal and well kempt Mental Status: mental status grossly normal Speech and movement: Normal speech and movement present and Clear speech present Affect: normal affect Attitude: cooperative Course Course Level of Care: Express Care Visit Vital Signs Vital signs: Vital Signs Temperature 98.6 F 03/26/25 17:42 Pulse Rate 88 03/26/25 17:42 Respiratory Rate 16 03/26/25 17:42 Blood Pressure 165/95 H 03/26/25 17:42 Pulse Oximetry 96 03/26/25 17:42 Oxygen Delivery Room Air 03/26/25 17:42 Temperature 98.6 F 03/26/25 17:42 Pulse Rate 88 03/26/25 17:42 Respiratory Rate 16 03/26/25 17:42 Blood Pressure 165/95 H 03/26/25 17:42 Pulse Oximetry 96 03/26/25 17:42 Oxygen Delivery Room Air 03/26/25 17:42 Reviewed Procedures Ear Wax Removal Both Ears: Ear Wax Removal Date: 03/26/25 Ear Wax Removal Time: 17:52 Cerumenolytic Used: other (Peroxide water) Results: Re-examined: some cerumen remains TM Examination: TM(s) intact, normal appearance Ear Canal Exam: other (Irritation, pain, no swelling, no bleeding) Patient Tolerated Procedure: well Complications: no problems Technique: ear canal irrigated and ear canal curetted Medical Decision Making MDM Narrative Medical decision making narrative: Patient sitting comfortably in exam room. Nontoxic, vitals stable. Patient in no acute distress Left ear decreased hearing. Significant earwax noted to bilateral ears. Cleaned with peroxide water, elephant. Use curette. Scant amount of wax noted, left. Patient appropriate with outpatient treatment, close follow-up. Discharge instructions reviewed with patient, as well as provided in writing per nursing staff. The instructions also include specific and strict return/GO TO THE ER as well as f/u information. All questions have been answered, and the patient deny any further questions with discharge and discharge plan. Some parts of this dictation were generated by voice recognition software and may contain typographical and/or grammatical inaccuracies. Differential Diagnosis Differential Diagnosis: Otitis media, serous otitis, otitis externa, cerumen impaction Medical Records Medical records reviewed: Yes I reviewed the external patient's medical records. Vital Signs Vital Signs: Vital Signs Temperature 98.6 F 03/26/25 17:42 Pulse Rate 88 03/26/25 17:42 Respiratory Rate 16 03/26/25 17:42 Blood Pressure 165/95 H 03/26/25 17:42 Pulse Oximetry 96 03/26/25 17:42 Oxygen Delivery Room Air 03/26/25 17:42 Temperature 98.6 F 03/26/25 17:42 Pulse Rate 88 03/26/25 17:42 Respiratory Rate 16 03/26/25 17:42 Blood Pressure 165/95 H 03/26/25 17:42 Pulse Oximetry 96 03/26/25 17:42 Oxygen Delivery Room Air 03/26/25 17:42 Reviewed Lab Data Lab results reviewed: Yes I reviewed the patient's lab results. Labs: Reviewed Critical Care Time Critical Care Time Critical Care Time: No Discharge Plan Discharge Clinical Impression: Bilateral impacted cerumen Patient Disposition: Home Condition: Stable Instructions: Antibiotic Form, Carbamide Peroxide (Into the ear), How to Use Ear Drops (ED) Additional Instructions: You had Cerumen (EAR wax impaction). Do not use Q-tips or put anything in the ear. This can damage the ear. Instead , use Debrox or ear wax remover. Place 5 drops in ear after a hot shower and place a warm compress over the ear for 20 minutes. alternate doing this every 3-4 days. It will break up the wax gently. Do not use too much pressure. Once you have all of the cerumen out of your ears, you may do preventative treatment to prevent this from happening again. Use 5 drops once weekly after a hot shower. Today your blood pressure was 165/95, it is recommended you follow-up with primary care provider to have this rechecked within 2 weeks If you still have trouble hearing it is recommended that you follow-up with an ENT or hearing aid place or primary care provider. Patient Language: Bahamian Prescriptions: New [id number] 3.5-10,000-1 mg/mL-unit/mL-% drops,suspension 4 drp EACH EAR TID 7 Days Qty: 10 0RF Follow-up/Referrals: Abebe,Ritesh Justin MD [Primary Care Provider[facility] Blood pressure check 165/95) Time of Disposition: 18:00
[2025-03-26 17:42] VITALS: BP 165/95; PULSE 88; RESP 16; TEMP 37; O2SAT 96
== END 2025-03-26 18:07 | disposition home or self-care (01) ==
PROVIDERS: Emergency Provider Nurse Practitioner; PCP Internal Medicine
DX: H61.23 Impacted cerumen, bilateral (principal); E78.5 Hyperlipidemia, unspecified
CPT/HCPCS: 69210; 99213; A9270; G0463